=== PATIENT | male | born 1995 | race Caucasian/White ===

== ENCOUNTER 2025-04-21 23:57 | Emergency (ER) | payer SELFPAY ==
[~2025-04-21] VITALS: Ht 170.2 cm; Wt 80.0 kg
[2025-04-22 00:05] VITALS: O2SAT 99
[2025-04-22] MEDS ORDERED: KETOROLAC 15MG/ML VIAL IM ONE (00:15)
[2025-04-22] MEDS ORDERED: LIDO-53 TP (01:53)
[2025-04-22] MEDS ORDERED: NAPR-1176 MT (01:53)
[2025-04-22 03:15] VITALS: BP 129/85; PULSE 64; RESP 13; TEMP 36.5; O2SAT 100
[2025-04-22] MEDS: KETOROLAC 15MG/ML VIAL IM NR (03:17)
== END 2025-04-22 03:20 | disposition home or self-care (01) ==
LOC: ER 23:57
DX: S02.2XXA Fracture of nasal bones, initial encounter for closed fracture (principal); Z79.1 Long term (current) use of non-steroidal anti-inflammatories (NSAID); W19.XXXA Unspecified fall, initial encounter; Y93.9 Activity, unspecified; Y92.89 Other specified places as the place of occurrence of the external cause; Y99.8 Other external cause status
CPT/HCPCS: 99285; 70450; 70486; 96372; J1885